=== PATIENT | male | born 1950 | race Hispanic/Latino ===

== ENCOUNTER 2020-12-31 07:27 | Day surgery (SDC) | payer MEDICARE, OTHER ==
[2020-12-31] MEDS ORDERED: ASPIRIN EC 325 MG TAB PO NR (07:54)
[2020-12-31] MEDS ORDERED: SODIUM CHLORIDE 0.9% 500 ML 500 ML IV SCH (08:00)
[2020-12-31 08:26] LABS: Basophils # (Auto) 0.1 K/mm3 (0.0-0.1); Basophils % (Auto) 2.3 % (0.0-1.8); Eosinophils # (Auto) 0.2 K/mm3 (0.0-0.4); Eosinophils % (Auto) 4.9 % (0.0-4.3); Hematocrit 35.3 % (35.5-45.6); Hemoglobin 11.6 gm/dl (11.8-15.2); Lymphocytes # (Auto) 0.9 K/mm3 (1.2-5.4); Lymphocytes % (Auto) 19.6 % (13.4-35.0); Mean Corpuscular HGB Conc 33 % (32-34); Mean Corpuscular Volume 78 fl (84-94); Monocytes # (Auto) 0.5 K/mm3 (0.0-0.8); Monocytes % (Auto) 12.3 % (0.0-7.3); Platelet Count 189 K/mm3 (140-440); Red Blood Count 4.51 M/mm3 (3.65-5.03); Red Cell Distribution Width 17.2 % (13.2-15.2)
[2020-12-31 08:39] LABS: BUN/Creatinine Ratio 18; Blood Urea Nitrogen 18 mg/dL (9-20); Calcium 8.6 mg/dL (8.4-10.2); Hemolysis Index 1
[2020-12-31 09:43] LABS: INR 0.94 (0.87-1.13)
[2020-12-31] MEDS ORDERED: HEPARIN/NS 5000 UNIT/500ML 1,000 ML IR ONE (09:43)
[2020-12-31] MEDS ORDERED: NITROGLYCERIN SYRINGE 0 ML ONE (09:43)
[2020-12-31] MEDS: fentaNYL 100 MCG/2 ML INJ ONE ×2 (10:17→10:25)
[2020-12-31] MEDS: MIDAZOLAM 2 MG/2 ML INJ ONE ×2 (10:17→10:25)
[2020-12-31] MEDS: HEPARIN 10,000 UNITS/10 ML VIAL ONE ×2 (10:18→10:33)
[2020-12-31] MEDS: LIDOCAINE (2%) 20 MG/1 ML VIAL 20 ML MDV INFILTRATI ONE ×2 (10:18→10:30)
[2020-12-31] MEDS: VERAPAMIL 5 MG/2 ML INJ ONE ×2 (10:18→10:33)
--- NOTE | 2020-12-31 11:25 | Cardiac Catherization Report ---
CARDIAC CATHETERIZATION REPORT INDICATION FOR PROCEDURE: The patient is a 70-year-old white gentleman with known coronary artery disease documented more than 20 years ago, 50% lesion and a widowmaker vessel, presently having episodes of shortness of breath. The patient has underlying history of Parkinson's disease and history of depression. Presently having episodic shortness of breath at rest. These are prolonged and severe. Because of these episodes of shortness of breath, the patient is being scheduled for cardiac catheterization for definitive diagnosis and treatment. The patient is aware of the procedure, potential complications, and alternatives of therapy available. DESCRIPTION OF PROCEDURE: The patient was brought to the catheterization laboratory in a fasting condition. The patient was evaluated for moderate sedation and was felt to be appropriate candidate for moderate sedation. The patient received IV Versed and fentanyl starting at 10:25 a.m. Subsequently, the patient was prepared in standard fashion. Sterile drapes were applied. Local anesthesia was given in the right wrist area and right radial artery access was obtained using a 21-gauge arterial puncture needle. A 5-Ukrainian slender sheath was introduced. A 5-Ukrainian multipurpose catheter was used to obtain the left ventriculogram done in NGO projection using hand injection followed by angiograms of the left coronary artery and right coronary artery in multiple views. At the end of the procedure, the catheter and sheath were removed. The patient was monitored throughout the procedure for any side effects from moderate sedation. The patient was monitored with pulse oximetry, EKG monitoring and hemodynamic monitoring. At the end of the procedure, the patient is able to communicate normally with no focal deficits and breathing normally. The patient's sedation ended at 10:49 a.m. Right radial hemostasis was achieved using a radial band. The patient was transferred to the outpatient area in a stable condition. Following findings were noted. HEMODYNAMICS: 1. Opening aortic pressure 113/64. Left ventricular pressure 113/16. No gradient across the aortic valve. Estimated ejection fraction 55%. 2. Left ventriculogram done in NGO projection showed normal sized left ventricle with normal contractility. Mitral regurgitation could not be evaluated because of limited amount of dye injected. Right coronary artery dominant vessel arises normally from right coronary cusp. This is a very large vessel, diffuse ectasia noted throughout. However, no obstructive lesions noted. 3. Left coronary artery arises normally from left coronary cusp. Left main shows mild disease 20-30% distally. LAD shows mild irregularities throughout. Proximal diagonal branch shows mild disease. Mid diagonal branch shows 70% focal lesion, which is a medium sized vessel. Circumflex artery shows severe ostial stenosis approaching 95-98%. TATA 3 flow noted. Distal RCA represented by a fairly large marginal branch without significant disease. This is supplying a large area of lateral area. 4. Collaterals none. FINAL IMPRESSION: Normal sized left ventricle with normal contractility. 70% mid diagonal lesion, which is a medium sized vessel. This is focal lesion. However, the severe lesion at the very ostium of the circumflex artery with no significant distal disease in the circumflex artery. RCA is huge vessel showed ectasia with no obstructive lesions. Considering his symptomatology, the patient probably would benefit from revascularization of the circumflex lesion. I would get a second opinion for revascularization by interventional cardiology at [facility]. Discussed with Dr. Gallagher who is going to arrange it as an outpatient in the next 1 week time. I explained the same to the patient. Procedure was uncomplicated. The patient is on appropriate therapy and he is on nitroglycerin sublingual p.r.n. for any chest pain, shortness of breath. JOB# [id number] CIELO/ALEJANDRA ANG
[2020-12-31] MEDS ORDERED: HYDROcodone/ACETAMINOPHEN 5-325 MG TAB PO NR (12:45)
--- NOTE | 2020-12-31 12:49 | Short Stay Summary ---
Short Stay Documentation Date of service: 12/31/20 - History H&P: obtained from office - Allergies and Medications Current Medications: Allergies No Known Allergies Allergy (Verified 12/31/20 07:53) Home Medications Medication Instructions Recorded Confirmed Last Taken Type Aspirin EC [Halfprin EC] 81 mg PO QDAY 12/31/20 12/31/20 12/30/20 History 81 mg Carbidopa/Levodopa 25-100 [Sinemet 1 tab PO TID 12/31/20 12/31/20 12/30/20 History 25/100] 1 tab Metoprolol [Lopressor TAB] 25 mg PO DAILY 12/31/20 12/31/20 12/30/20 History 25 mg Nitroglycerin [Nitrostat] 0.4 mg SL PRN PRN 12/31/20 12/31/20 Unknown History Pramipexole [Mirapex] 1 mg PO TID 12/31/20 12/31/20 12/30/20 History Sertraline [Zoloft] 100 mg PO DAILY 12/31/20 12/31/20 12/30/20 History 100 mg Tamsulosin [Flomax] 0.4 mg PO DAILY 12/31/20 12/31/20 12/30/20 History 0.4mg Active Medications Sodium Chloride (Nacl 0.9% 500 Ml) 500 mls @ 50 mls/hr IV DIRECT AYDE Stop: 12/31/20 17:59 Last Admin: 12/31/20 09:47 Dose: 50 mls/hr Documented by: - Brief post op/procedure progress note Date of procedure: 12/31/20 Pre-op diagnosis: CAD Post-op diagnosis: same Procedure: [facility]- see dictated cath report Anesthesia: local Estimated blood loss: none Condition: stable - Disposition Condition at discharge: Good Disposition: [id number] TO HOME OR SELFCARE - Discharge Diagnoses (1) Coronary artery disease Status: Chronic (2) Parkinson disease Status: Chronic Short Stay Discharge Plan Activity: advance as tolerated Diet: low fat, low cholesterol, low salt Wound: open to air, keep clean and dry, per your surgeon's advice Follow up with: KATELYNN MCDERMOTT MD [Primary Care Provider] - 7 Days REN SALCIDO MD [Staff Physician] - 7 Days
[2020-12-31 14:06] VITALS: BP 126/63
== END 2020-12-31 14:28 | disposition home or self-care (01) ==
LOC: CATHLABREC 07:27
PROVIDERS: ATTEND Internal Medicine
DX: R06.02 Shortness of breath (principal); I25.118 Atherosclerotic heart disease of native coronary artery with other forms of angina pectoris; G20 Parkinson's disease; H40.9 Unspecified glaucoma; G47.30 Sleep apnea, unspecified; M19.90 Unspecified osteoarthritis, unspecified site; F32.9 Major depressive disorder, single episode, unspecified; Z79.899 Other long term (current) drug therapy; Z79.82 Long term (current) use of aspirin; Z98.890 Other specified postprocedural states; Z80.8 Family history of malignant neoplasm of other organs or systems
CPT/HCPCS: 36415; 80048; 85025; 85610; 85730; 93005; 93458; 99156; 99157; C1894; J1644; J2250; J3010; J7040; Q9967